=== PATIENT | female | born 1990 | race Caucasian/White ===

== ENCOUNTER 2017-09-11 16:34 | Inpatient (IN) | payer BC, MEDICAID, OTHER ==
[~2017-09-11] VITALS: Ht 167.6 cm; Wt 78.1 kg
[~2017-09-11 16:34] MED LIST: DOCU-131 PO; IBUP-1223 PO; OXYC-302 PO
[2017-09-11] MEDS ORDERED: INSU100C SQ-INSULIN (17:02)
[2017-09-11] MEDS ORDERED: SODIUM CHLORIDE 0.9% 1,000ML IVBOLUS ONE (17:30)
[2017-09-11 17:37] LABS: PH, VENOUS 7.335 pH (7.320-7.420)
[2017-09-11 17:51] LABS: ALANINE AMINOTRANSFERASE 38 U/L (12-78); ALBUMIN 4.3 g/dL (3.4-5.0); ANION GAP 17 mmol/L (5-15); CHLORIDE 104 mmol/L (98-107); CREATININE 1.27 mg/dL (0.55-1.02)
[2017-09-11 17:53] LABS: ALKALINE PHOSPHATASE 93 U/L (45-117); BILIRUBIN,TOTAL 0.8 mg/dL (0.2-1.0); TOTAL PROTEIN 8.5 g/dL (6.4-8.2)
[2017-09-11 17:54] LABS: MICROSCOPIC AUTO
[2017-09-11 17:56] LABS: BASOPHILS # (AUTO) 0.04 x10^3/uL (0-0.1); BASOPHILS % (AUTO) 0 % (0-1); EOSINOPHILS % (AUTO) 0 % (1-7); LYMPHOCYTES # (AUTO) 1.54 x10^3/uL (1-3.4); LYMPHOCYTES % (AUTO) 11 % (22-44); MD NO; MEAN CORPUSCULAR HGB CONC 34.3 g/dL (32.4-35.8); MEAN CORPUSCULAR VOLUME 93.3 fL (80-100); MEAN PLATELET VOLUME 8.4 fL (7.4-10.4); MONOCYTES # (AUTO) 0.77 x10^3/uL (0.2-0.8); MONOCYTES % (AUTO) 6 % (2-9); NEUTROPHILS # (AUTO) 11.18 x10^3/uL (1.8-6.8); NEUTROPHILS % (AUTO) 83 % (42-75); PLATELET COUNT 325 x10^3/uL (130-400); RED BLOOD COUNT 4.57 x10^6/uL (3.82-5.3); RED CELL DISTRIBUTION WIDTH 13.8 % (9.6-15.2)
[2017-09-11 18:02] LABS: CULTURE INDICATED? NO
[2017-09-11 18:05] LABS: ACETONE, SERUM Large (80mg/dL) mg/dL (Negative)
[2017-09-11] MEDS ORDERED: INSULIN REGULAR 100 UNITS/ML, 3ML VIAL ONE (18:24)
[2017-09-11] MEDS ORDERED: INSULIN REGULAR 100 UNITS/ML, 3ML VIAL SQ-INSULIN ONE (18:30)
[2017-09-11] MEDS: POTASSIUM CHLORIDE 40 MEQ in SODIUM CHLORIDE 0.9% 500 ML IV ONE ×2 (19:02→19:35)
[2017-09-11] MEDS: REGULAR INSULIN 62.5 UNITS in SODIUM CHLORIDE 0.9% 249.375 ML IV PRN ×2 (19:27→19:35)
[2017-09-11] MEDS ORDERED: ENOXAPARIN 40 MG/0.4 ML SQ SCH (19:30)
[2017-09-11] MEDS ORDERED: REGULAR INSULIN 62.5 UNITS in SODIUM CHLORIDE 0.9% 249.375 ML IV PRN (19:30)
[2017-09-11] MEDS ORDERED: ACETAMINOPHEN 325 MG TABLET PO PRN (19:30)
[2017-09-11] MEDS ORDERED: ONDANSETRON 2MG/ML, 2ML IVPush PRN ×2 (19:30→19:39)
[2017-09-11] MEDS ORDERED: ONDANSETRON ODT 4 MG PO PRN ×2 (20:00)
[2017-09-11] MEDS: D5%-0.45% NACL 1,000 ML IV SCH (20:09)
[2017-09-11 20:15] LABS: ALANINE AMINOTRANSFERASE 31 U/L (12-78); ALBUMIN 3.5 g/dL (3.4-5.0); ANION GAP 16 mmol/L (5-15); CALCIUM 8.3 mg/dL (8.5-10.1); CHLORIDE 110 mmol/L (98-107); CREATININE 1.12 mg/dL (0.55-1.02)
[2017-09-11 20:18] LABS: ALKALINE PHOSPHATASE 79 U/L (45-117); BILIRUBIN,TOTAL 0.8 mg/dL (0.2-1.0); TOTAL PROTEIN 7.2 g/dL (6.4-8.2)
[2017-09-11 23:38] LABS: ANION GAP 11 mmol/L (5-15); CALCIUM 7.6 mg/dL (8.5-10.1); CHLORIDE 112 mmol/L (98-107); CREATININE 0.96 mg/dL (0.55-1.02)
[2017-09-12] MEDS: D5%-0.45% NACL 1,000 ML IV SCH (01:47)
[2017-09-12 03:42] LABS: ANION GAP 10 mmol/L (5-15); CALCIUM 7.5 mg/dL (8.5-10.1); CHLORIDE 112 mmol/L (98-107); CREATININE 0.88 mg/dL (0.55-1.02)
[2017-09-12 03:45] LABS: ACETONE, SERUM Small (20mg/dL) mg/dL (Negative)
[2017-09-12 04:00] VITALS: BP 88/43
[2017-09-12 07:57] LABS: ANION GAP 8 mmol/L (5-15); CALCIUM 7.7 mg/dL (8.5-10.1); CHLORIDE 112 mmol/L (98-107); CREATININE 0.88 mg/dL (0.55-1.02)
[2017-09-12 10:24] LABS: HEMOGLOBIN A1C 7.8 % (4.2-6.3)
== END 2017-09-12 14:15 | disposition home or self-care (01) | DRG 638 ==
LOC: ED 18:35 → EDIP 18:43 → ED 18:58 → SUATTDRO 19:29 → CCU 19:54
PROVIDERS: ADMIT Hospitalist; ATTEND Hospitalist
DX: E10.10 Type 1 diabetes mellitus with ketoacidosis without coma (principal); N17.9 Acute kidney failure, unspecified; E10.649 Type 1 diabetes mellitus with hypoglycemia without coma; E87.8 Other disorders of electrolyte and fluid balance, not elsewhere classified; E86.9 Volume depletion, unspecified; D72.829 Elevated white blood cell count, unspecified; Z79.4 Long term (current) use of insulin; Z96.41 Presence of insulin pump (external) (internal)
CPT/HCPCS: 36415; 71045; 80048; 80053; 81001; 82010; 82803; 82962; 83036; 83690; 83735; 84100; 85025; 87081; 93005; 96374; J1650; J1815; J3480; J7030; J7040; J7050

== ENCOUNTER 2020-04-02 19:27 | Inpatient (IN) | payer BC, OTHER ==
[~2020-04-02] VITALS: Ht 170.2 cm; Wt 71.0 kg
[~2020-04-02 19:27] MED LIST changes: +INSU100C SQ-INSULIN
[2020-04-02] MEDS ORDERED: ONDANSETRON 2MG/ML, 2ML IVPush ONE (20:00)
[2020-04-02] MEDS ORDERED: SODIUM CHLORIDE 0.9% 1,000ML IVBOLUS ONE ×2 (20:00→22:00)
[2020-04-02] MEDS ORDERED: ONDANSETRON 2MG/ML, 2ML ONE (20:10)
[2020-04-02 20:12] LABS: PH, VENOUS 7.306 pH (7.320-7.420)
[2020-04-02 20:16] LABS: BASOPHILS % (AUTO) 0 % (0-1); EOSINOPHILS % (AUTO) 0 % (1-7); LYMPHOCYTES % (AUTO) 8 % (22-44); MEAN CORPUSCULAR HEMOGLOBIN 32.7 pg (27.0-34.8); MEAN PLATELET VOLUME 7.8 fL (7.4-10.4); MONOCYTES % (AUTO) 5 % (2-9); NEUTROPHILS % (AUTO) 87 % (42-75); PLATELET COUNT 319 x10^3/uL (130-400); RED BLOOD COUNT 4.82 x10^6/uL (3.82-5.3); RED CELL DISTRIBUTION WIDTH 12.9 % (9.6-15.2)
[2020-04-02 20:27] LABS: ALANINE AMINOTRANSFERASE 34 U/L (12-78); ALBUMIN 4.4 g/dL (3.4-5.0); ANION GAP 18 mmol/L (5-15); CALCIUM 9.5 mg/dL (8.5-10.1); CHLORIDE 100 mmol/L (98-107); CREATININE 1.34 mg/dL (0.55-1.02)
[2020-04-02 20:31] LABS: ALKALINE PHOSPHATASE 136 U/L (45-117); TOTAL PROTEIN 8.5 g/dL (6.4-8.2)
[2020-04-02 20:38] LABS: ACETONE, SERUM Large (80mg/dL) (Negative)
--- NOTE | 2020-04-02 20:39 | NUR ---
PT WITH C/O N/V, HIGH BLOOD SUGAR DESPITE INSULIN, RAPID RESPIRATIONS, DEHYDRATION. PT NOTICED SYMTPOMS AROUND 1400 THIS AFTERNOON
--- NOTE | 2020-04-02 20:40 | NUR ---
PT ATTACHED TO ALL MONITORS.
--- NOTE | 2020-04-02 20:49 | NUR ---
PT AMBULATORY TO THE BATHROOM WITH A STEADY GAIT FOR URINE SAMPLE
[2020-04-02 21:05] LABS: MD SCAN
[2020-04-02 21:27] LABS: MICROSCOPIC NOT IND
[2020-04-02] MEDS ORDERED: INSULIN REGULAR 100 UNITS/ML, 3ML VIAL IV ONE (22:00)
[2020-04-02] MEDS ORDERED: SODIUM CHLORIDE FLUSH 10ML SYR IVF PRN (23:30)
[2020-04-02] MEDS ORDERED: SODIUM CHLORIDE 0.9% 1,000 ML IV ONE (23:30)
--- NOTE | 2020-04-03 00:10 | NUR ---
REPORT TO NAVNEET TYSON
[2020-04-03] MEDS ORDERED: SODIUM CHLORIDE 0.9% 1,000 ML IV SCH (00:30)
[2020-04-03] MEDS ORDERED: DOCUSATE 100 MG CAPSULE PO PRN (00:30)
[2020-04-03] MEDS ORDERED: MELATONIN 5 MG TABLET PO PRN (00:30)
[2020-04-03 01:26] VITALS: BP 98/61
[2020-04-03] MEDS: D5%-0.45NACL+KCL 20MEQ 1,000 ML IV SCH ×2 (02:10→10:21)
[2020-04-03] MEDS: ONDANSETRON 2MG/ML, 2ML IVPush PRN ×2 (05:04→10:28)
[2020-04-03 05:40] LABS: ALBUMIN 3.2 g/dL (3.4-5.0); ANION GAP 7 mmol/L (5-15); CHLORIDE 107 mmol/L (98-107); CREATININE 0.78 mg/dL (0.55-1.02)
[2020-04-03 07:55] VITALS: BP 98/56
[2020-04-03] MEDS: INSULIN REGULAR 100 UNITS/ML, 3ML VIAL SQ-INSULIN SCH ×6 (10:21→18:19)
[2020-04-03 12:52] VITALS: BP 110/55
[2020-04-03] MEDS ORDERED: SODIUM CHLORIDE 0.9%, 500ML IVBOLUS ONE (13:00)
[2020-04-03 14:19] LABS: ANION GAP 9 mmol/L (5-15); CALCIUM 8.3 mg/dL (8.5-10.1); CHLORIDE 105 mmol/L (98-107); CREATININE 1.04 mg/dL (0.55-1.02)
[2020-04-03] MEDS: SODIUM CHLORIDE 0.9% 1,000 ML IV SCH ×2 (16:26→22:40)
[2020-04-03 19:17] VITALS: BP 113/70
[2020-04-04] MEDS ORDERED: ACETAMINOPHEN 325 MG TABLET PO PRN (01:30)
[2020-04-04 01:33] LABS: BASOPHILS % (AUTO) 1 % (0-1); EOSINOPHILS % (AUTO) 1 % (1-7); LYMPHOCYTES % (AUTO) 47 % (22-44); MEAN CORPUSCULAR HGB CONC 34.1 g/dL (32.4-35.8); MEAN PLATELET VOLUME 7.7 fL (7.4-10.4); MONOCYTES % (AUTO) 6 % (2-9); NEUTROPHILS % (AUTO) 45 % (42-75); PLATELET COUNT 249 x10^3/uL (130-400); RED BLOOD COUNT 3.77 x10^6/uL (3.82-5.3); RED CELL DISTRIBUTION WIDTH 13.3 % (9.6-15.2)
[2020-04-04 01:44] LABS: ANION GAP 4 mmol/L (5-15); CALCIUM 7.8 mg/dL (8.5-10.1); CHLORIDE 113 mmol/L (98-107); CREATININE 0.73 mg/dL (0.55-1.02)
[2020-04-04] MEDS: HYDROcodone/APAP 5/325 TABLET PO PRN ×2 (01:48→08:15)
[2020-04-04 01:49] LABS: MD SCAN
[2020-04-04 02:16] VITALS: BP 131/77
[2020-04-04] MEDS: SODIUM CHLORIDE 0.9% 1,000 ML IV SCH ×2 (05:20→10:54)
[2020-04-04] MEDS: INSULIN REGULAR 100 UNITS/ML, 3ML VIAL SQ-INSULIN SCH ×2 (08:06→10:53)
[2020-04-04 08:40] VITALS: BP 116/75
[2020-04-04] MEDS ORDERED: INSU100C5 SQ-INSULIN (12:37)
== END 2020-04-04 13:41 | disposition home or self-care (01) | DRG 919 ==
LOC: ED 20:10 → EDIP 23:49 → 3N 04-03 01:05 → 5SO 04-03 04:00 → DCLOUNGE 04-04 13:32
PROVIDERS: ADMIT Internal Medicine; ATTEND Internal Medicine
DX: T85.694A Other mechanical complication of insulin pump, initial encounter (principal); E10.10 Type 1 diabetes mellitus with ketoacidosis without coma; N17.0 Acute kidney failure with tubular necrosis; E87.1 Hypo-osmolality and hyponatremia; D72.829 Elevated white blood cell count, unspecified; E86.0 Dehydration; F17.200 Nicotine dependence, unspecified, uncomplicated; Z96.41 Presence of insulin pump (external) (internal); Y74.2 Prosthetic and other implants, materials and accessory general hospital and personal-use devices associated with adverse incidents; Z79.4 Long term (current) use of insulin; Z83.3 Family history of diabetes mellitus
CPT/HCPCS: 36415; 71045; 80048; 80053; 81003; 82010; 82040; 82803; 82947; 82962; 83036; 84703; 85025; G0378; J1815; J2405; J3480; J7030; J7040